=== PATIENT | male | born 1955 | race Caucasian/White ===

== ENCOUNTER → 2016-06-20 | Outpatient (CLI) | payer OTHER ==
[~2016-06-20] MED LIST: BACTRIM 400 MG-1 TAB PO; BACTRIM DS 8001 TAB PO; CIPRO 500MG TA500 MG PO; NOMEDS XX; PYRIDIUM200 M2 PO
--- NOTE | 2016-06-21 09:29 | RADIOLOGY REPORT PS360 ---
CYSTOGRAM - (VOIDING) HISTORY: URETHERAL STRICTURE ORDERING PHYSICIAN: John Lock MD PATIENT AGE: 60 years COMPARISON: None FINDINGS: KUB demonstrates a suprapubic catheter in place. Surgical clips are present over the lower pelvic region. Contrast is instilled into the urinary bladder through the suprapubic catheter. The bladder has an irregular contour consistent with hypertrophied wall with multiple large bladder diverticula. Approximately 200 cc of contrast was instilled into the urinary bladder. No irregular filling defects were demonstrated. The patient was then asked to void. There is dilatation of the prosthetic and bulbous urethra as well as the proximal pain ureteral. There is a stricture involving the mid aspect of the pain now urethra. The mucosa here is somewhat irregular. There is some mild dilatation with the diverticula involving the proximal aspect of the pain now urethra. Incidental note is made of back flow of contrast into the prostate likely secondary to the urethral stricture. IMPRESSION: 1. Multiple bladder diverticula with hypertrophy of the urinary bladder wall. 2. There is a stricture involving the mid aspect of the pain urethra with some irregularity mucosa at this region along with dilatation of the prosthetic and bulbous urethra and proximal PE now urethra proximal to the stricture with a small diverticulum involving the mid aspect of the pain now ureter just proximal to the stricture. 3. Heterogeneous opacification of the prostate on the voiding images consistent with back flow of contrast into the prostate.
== END ==
LOC: RAD 12:50
DX: N35.9 Urethral stricture, unspecified (principal)
CPT/HCPCS: Q9966

== ENCOUNTER 2016-08-14 14:34 | Outpatient (CLI) | payer OTHER | END 2016-08-14 14:50 | disposition home or self-care (01) | LOC: COP 14:34 | DX: Z45.2 Encounter for adjustment and management of vascular access device (principal) | CPT/HCPCS: G0463 ==